=== PATIENT | female | born 1985 | race Asian ===

== ENCOUNTER 2019-08-25 13:44 | Emergency (ER) | payer BC ==
[~2019-08-25] VITALS: Ht 157.5 cm; Wt 49.9 kg
[2019-08-25 13:49] VITALS: Ht 157.5 cm; Wt 49.9 kg
[2019-08-25 14:27] LABS: BASOPHIL % 0.1 % (0-2); PLATELET COUNT 231 x10^3mcL (130-400)
[2019-08-25 14:30] LABS: RED CELL DISTRIBUTION WIDTH 15.8 % (11.5-14.5)
[2019-08-25 17:20] LABS: microscopic required? YES; urine erythrocyte 3+ (NEGATIVE)
[2019-08-25 17:57] VITALS: BP 117/64
== END 2019-08-25 17:57 | disposition home or self-care (01) ==
LOC: ED 13:44
PROVIDERS: Emergency Medicine
DX: O20.0 Threatened abortion (principal)
CPT/HCPCS: 36415